=== PATIENT | female | born 1960 | race Caucasian/White ===

== ENCOUNTER 2020-07-07 10:06 | Outpatient (CLI) | payer OTHER, SELFPAY ==
--- NOTE | 2020-07-07 11:30 | NEURO_ITS ---
Impression: # Complains of numbness of hands and feet. # Evolving mild Carpal Tunnel Syndrome, left more than right. # Left peroneal responses of low amplitude with normal F-waves. # Needle/EMG exam revealed decreased motor unit potentials in bilateral EDB. # Clinical correlation recommended; Higher involvement needs to be ruled out. Nerve Conduction Studies Anti Sensory Summary Table Stim Site NR Peak (ms) P-T Amp (?V) Site1 Site2 Delta-P (ms) Dist (cm) Owen (m/s) Left Median Anti Sensory (2-3nd Digit) Wrist 4.3 43.3 Wrist 2-3nd Digit 4.3 14.0 33 Wrist 4.5 23.8 Wrist 2-3nd Digit 4.3 14.0 33 Right Median Anti Sensory (2-3nd Digit) Wrist 3.9 78.2 Wrist 2-3nd Digit 3.9 14.0 36 Wrist 3.8 30.7 Wrist 2-3nd Digit 3.9 14.0 36 Left Radial Anti Sensory (Base 1st Digit) Wrist 2.3 42.9 Wrist Base 1st Digit 2.3 0.0 Right Radial Anti Sensory (Base 1st Digit) Wrist 2.8 30.1 Wrist Base 1st Digit 2.8 0.0 Left Sup Fibular Anti Sensory (Ant Lat Mall) 14 cm 3.4 4.7 14 cm Ant Lat Mall 3.4 16.0 47 Right Sup Fibular Anti Sensory (Ant Lat Mall) 14 cm 3.8 19.9 14 cm Ant Lat Mall 3.8 16.0 42 Left Sural Anti Sensory (Lat Mall) Calf 3.6 15.0 Calf Lat Mall 3.6 16.0 44 Right Sural Anti Sensory (Lat Mall) Calf 3.8 6.2 Calf Lat Mall 3.8 16.0 42 Left Ulnar Anti Sensory (5th Digit) Wrist 3.4 44.1 Wrist 5th Digit 3.4 14.0 41 Right Ulnar Anti Sensory (5th Digit) Wrist 2.9 35.4 Wrist 5th Digit 2.9 14.0 48 Motor Summary Table Stim Site NR Onset (ms) O-P Amp (mV) Site1 Site2 Delta-0 (ms) Dist (cm) Owen (m/s) Left Median Motor (Abd Poll Brev) Wrist 4.1 5.2 Elbow Wrist 5.3 28.0 53 Elbow 9.4 3.0 Right Median Motor (Abd Poll Brev) Wrist 4.0 9.6 Elbow Wrist 5.4 29.0 54 Elbow 9.4 3.0 Left Peroneal Motor (Vastus Med) Ankle 5.8 0.2 Popit Ankle 9.7 39.0 40 Popit 15.5 0.3 Right Peroneal Motor (Vastus Med) Ankle 5.4 0.9 Popit Ankle 8.8 37.0 42 Popit 14.2 1.5 Left Tibial Motor (Abd Ahumada Brev) Ankle 5.6 5.1 Knee Ankle 10.8 46.0 43 Knee 16.4 3.9 Right Tibial Motor (Abd Ahumada Brev) Ankle 5.2 5.0 Knee Ankle 10.6 43.0 41 Knee 15.8 2.3 Left Ulnar Motor (Abd Dig Minimi) Wrist 3.0 6.1 A Elbow Wrist 5.3 31.0 58 A Elbow 8.3 4.5 Right Ulnar Motor (Abd Dig Minimi) Wrist 2.7 3.4 A Elbow Wrist 5.5 30.0 55 A Elbow 8.2 2.8 F Wave Studies NR F-Lat (ms) L-R F-Lat (ms) Left Median (Mrkrs) (Abd Poll Brev) 30.27 0.72 Right Median (Mrkrs) (Abd Poll Brev) 29.55 0.72 Left Peroneal (Mrkrs) (EDB) 60.20 0.70 Right Peroneal (Mrkrs) (EDB) 59.50 0.70 Left Tibial (Mrkrs) (Abd Hallucis) 60.32 0.97 Right Tibial (Mrkrs) (Abd Hallucis) 59.35 0.97 Left Ulnar (Mrkrs) (Abd Dig Min) 30.45 1.32 Right Ulnar (Mrkrs) (Abd Dig Min) 29.13 1.32 EMG Side Muscle Nerve Root Ins Act Fibs Amp Dur Recrt Comment Right 1stDorInt Ulnar C8-T1 Nml Nml Nml Nml Nml Right Ext Indicis Radial (Post Int) C7-8 Nml Nml Nml Nml Nml Right Ext Digitorum Radial (Post Int) C7-8 Nml Nml Nml Nml Nml Right BrachioRad Radial C5-6 Nml Nml Nml Nml Nml Right PronatorTeres Median C6-7 Nml Nml Nml Nml Nml Right Abd Poll
== END 2020-07-07 10:07 | disposition home or self-care (01) ==
DX: G56.03 Carpal tunnel syndrome, bilateral upper limbs (principal); R20.2 Paresthesia of skin
CPT/HCPCS: 95886; 95913